=== PATIENT | female | born 2000 | race Two or more races ===

== ENCOUNTER 2024-04-14 13:31 | Emergency (ER) | payer OTHER ==
[~2024-04-14] VITALS: Ht 177.8 cm; Wt 98.0 kg
[2024-04-14 13:31] VITALS: O2SAT 97
[2024-04-14 13:32] VITALS: BP 118/66; PULSE 95; RESP 18; TEMP 98.6; O2SAT 99
[2024-04-14 14:27] LABS: CHLORIDE 109 mEq/L (98-107); SODIUM 141 mEq/L (136-145)
[2024-04-14 14:28] LABS: CARBON DIOXIDE 26 mEq/L (21-32)
[2024-04-14 14:29] LABS: CALCIUM 9.7 mg/dL (8.7-10.4)
[2024-04-14 14:31] LABS: BASOPHILS % 0.7 % (0.0-2.0); EOSINOPHILS % 2.6 % (0.0-5.0); HEMATOCRIT. 41.9 % (36.0-48.0); HEMOGLOBIN. 13.8 g/dL (12.0-16.0); LYMPHOCYTES % 30.8 % (20.0-50.0); MEAN CORPUSCULAR HGB CONC 33.1 g/dL (31.0-37.0); MEAN CORPUSCULAR VOLUME 93.6 fL (81.0-99.0); MEAN PLATELET VOLUME 8.1 fl (7.4-10.4); MONOCYTES % 5.7 % (2.0-8.0); NEUTROPHILS % 60.2 % (40.0-76.0); PLATELET 303 x1000/uL (130-400); RED BLOOD CELL COUNT 4.47 mill/uL (4.2-5.4); RED CELL DISTRIBUTION WIDTH 12.9 % (11.6-14.6)
[2024-04-14 14:33] LABS: CREATININE 0.9 mg/dL (0.6-1.0)
[2024-04-14 14:34] LABS: GLUCOSE 111 mg/dL (70-105); UREA NITROGEN BLOOD 7 mg/dL (9-23)
[2024-04-14 14:38] LABS: B-HCG QUANTITATIVE < 1 mIU/mL (<3)
== END 2024-04-14 16:10 | disposition home or self-care (01) ==
LOC: ER 13:31
DX: N93.9 Abnormal uterine and vaginal bleeding, unspecified (principal)
CPT/HCPCS: 36415; 76856; 80048; 84702; 85025; 86850; 86900; 99284